=== PATIENT | female | born 1945 | race Caucasian/White ===

== ENCOUNTER 2018-12-09 12:47 | Emergency (ER) | payer MEDICARE, OTHER ==
--- NOTE | 2018-12-09 14:46 | ER Document Report ---
ED Medical Screen (RME) - General Chief Complaint: Leg Swelling Stated Complaint: CHEST PAIN Time Seen by Provider: 12/09/18 14:16 Primary Care Provider: MEÑO PIPER MD [Primary Care Provider] - Follow up as needed Notes: Patient is a 73-year-old female that presents to the emergency department for chief complaint of leg swelling and shortness of breath. 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 Denies any chest pain ROS: Other than noted above, the 12 point review of systems was reviewed with the patient and were negative, all pertinent findings are included in the HPI. PHYSICAL EXAMINATION: Vital signs reviewed. GENERAL: Elderly female, no acute distress, HEAD: Atraumatic, normocephalic. EYES: Pupils equal round extraocular movements intact, conjunctiva are normal. ENT: Nares patent NECK: Normal range of motion CV: Heart regular rate and rhythm LUNGS: No respiratory distress Musculoskeletal: Normal range of motion, bilateral lower extremity edema NEUROLOGICAL: Normal speech PSYCH: Normal mood, normal affect. MDM: Patient seen and examined for rapid initial assessment. Vital signs reviewed. A comprehensive ED assessment and evaluation of the patient, analysis of test results and completion of the medical decision making process will be conducted by additional ED providers. *Note is created using voice recognition software and may contain spelling, syntax or grammatical errors. TRAVEL OUTSIDE OF THE [place] IN LAST 30 DAYS: No - Related Data Allergies/Adverse Reactions: No Known Allergies Allergy (Unverified 12/09/18 13:02) Past Medical History - Past Medical History Cardiac Medical History: Reports: Hx Hypercholesterolemia, Hx Hypertension Endocrine Medical History: Reports: Hx Diabetes Mellitus Type 2 Renal/ Medical History: Reports: Hx End Stage Renal Disease. Denies: Hx Peritoneal Dialysis Physical Exam - Vital signs Vitals: Temp Pulse Resp BP Pulse Ox 97.8 F 74 18 150/85 H 97 12/09/18 13:12/09/18 13:12/09/18 13:12/09/18 13:12/09/18 13:09 Course - Vital Signs Vital signs: Temp Pulse Resp BP Pulse Ox 97.8 F 74 18 150/85 H 97 12/09/18 13:12/09/18 13:09 12/09/18 13:09 12/09/18 13:09 12/09/18 13:09 Doctor's Discharge - Discharge Referrals: MEÑO PIPER MD [Primary Care Provider] - Follow up as needed
--- NOTE | 2018-12-09 14:48 | RADIOLOGY REPORT (SQ) ---
EXAM DESCRIPTION: CHEST SINGLE VIEW COMPLETED DATE/TIME: 12/09/2018 2:41 pm REASON FOR STUDY: dyspnea COMPARISON: None. EXAM PARAMETERS: NUMBER OF VIEWS: One view. TECHNIQUE: Single frontal radiographic view of the chest acquired. RADIATION DOSE: NA LIMITATIONS: None. FINDINGS: LUNGS AND PLEURA: No opacities, masses or pneumothorax. Small pleural effusions. MEDIASTINUM AND HILAR STRUCTURES: No masses. Contour normal. HEART AND VASCULAR STRUCTURES: Mild cardiac enlargement. Normal vasculature. BONES: No acute findings. HARDWARE: None in the chest. OTHER: No other significant finding. IMPRESSION: MILD CARDIAC ENLARGEMENT. SMALL PLEURAL EFFUSIONS. TECHNICAL DOCUMENTATION: JOB ID: [id number] [employer] ([employer])- All Rights Reserved Reading location - IP/workstation name: [email or web address]
[2018-12-09 16:17] LABS: ABSOLUTE LYMPHOCYTES (AUTO) 1.3 10^3/uL (0.5-4.7); ABSOLUTE MONOCYTES (AUTO) 0.3 10^3/uL (0.1-1.4); ABSOLUTE NEUT (AUTO) 4.2 10^3/uL (1.7-8.2); BASOPHILS % (AUTO) 0.3 % (0-2); EOSINOPHILS % (AUTO) 0.6 % (0-6); HEMATOCRIT 34.4 % (36.0-47.0); HEMOGLOBIN 11.4 g/dL (12.0-15.5); LYMPHOCYTES % (AUTO) 22.3 % (13-45); MEAN CORPUSCULAR HEMOGLOBIN 30.4 pg (27.0-33.4); MEAN CORPUSCULAR HGB CONC 33.2 g/dL (32.0-36.0); MEAN CORPUSCULAR VOLUME 91 fl (80-97); MONOCYTES % (AUTO) 5.7 % (3-13); PLATELET COUNT 205 10^3/uL (150-450); RED BLOOD COUNT 3.76 10^6/uL (3.72-5.28); RED CELL DISTRIBUTION WIDTH 14.5 % (11.5-14.0); SEGMENTED NEUTROPHILS % (AUTO) 71.1 % (42-78); TOTAL CELLS COUNTED % (AUTO) 100 %; WHITE BLOOD COUNT 5.9 10^3/uL (4.0-10.5)
--- NOTE | 2018-12-09 16:29 | ER Document Report ---
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 She is been having the swelling for a few weeks and now is developed shortness of breath, especially dyspnea on exertion. She has renal disease, but has never been told she needs to be on dialysis. Only complaining of shortness of breath and difficulty breathing, primarily with exertion. Not having any chest pains. TRAVEL OUTSIDE OF THE [place] IN LAST 30 DAYS: No - Related Data Allergies/Adverse Reactions: No Known Allergies Allergy (Unverified 12/09/18 13:02) Past Medical History - Social History Smoking Status: Unknown if Ever Smoked Family History: Reviewed & Not Pertinent Patient has suicidal ideation: No Patient has homicidal ideation: No - Past Medical History Cardiac Medical History: Reports: Hx Hypercholesterolemia, Hx Hypertension Endocrine Medical History: Reports: Hx Diabetes Mellitus Type 1, Hx Diabetes Mellitus Type 2 Renal/ Medical History: Reports: Hx Renal Insufficiency Review of Systems - Review of Systems Notes: REVIEW OF SYSTEMS: CONSTITUTIONAL : Denies fever. EENT: Denies eye, ear, nose or mouth or throat pain or other symptoms. CARDIOVASCULAR: Denies chest pain. Recent onset swelling of both lower extremities, mostly pretibial region. Chronic swelling of the inner right thigh since she delivered a child decades ago. Some swelling in the left inner thigh. No erythema like an infection. RESPIRATORY: Denies cough, chest congestion, but does complain of shortness of breath, especially with exertion. GASTROINTESTINAL: Denies abdominal pain or nausea, vomiting, or diarrhea. GENITOURINARY: Denies difficulty or painful urinating, urinary frequency, blood in urine. MUSCULOSKELETAL: Denies back or neck pain. Denies joint pain or swelling. SKIN: Denies rash or skin lesions. NEUROLOGICAL: Denies LOC or altered mental status. Denies headache. Denies sensory loss or motor deficits. ALL OTHER SYSTEMS REVIEWED AND NEGATIVE. Physical Exam - Vital signs Vitals: Temp Pulse Resp BP Pulse Ox 97.8 F 74 18 150/85 H 97 12/09/18 13:09 12/09/18 13:09 12/09/18 13:09 12/09/18 13:09 12/09/18 13:09 Interpretation: Normal Notes: PHYSICAL EXAMINATION: GENERAL: Well-appearing, in no acute distress. HEAD: Atraumatic, normocephalic. EYES: Pupils equal round and reactive to light, extraocular movements intact. ENT: oropharynx clear without exudates. Moist mucous membranes. NECK: Normal range of motion, supple. LUNGS: Breath sounds clear and equal bilaterally. No wheezes. I do not really hear any rales or rhonchi either. Good air exchange. HEART: Regular rate and rhythm without murmurs. ABDOMEN: Soft, nontender. No guarding or rebound. No masses. BACK: No tenderness throughout entire back. EXTREMITIES: Normal range of motion without pain. Bilateral pitting edema of about +2, in the pretibial area. Negative Homans bilaterally. Right inner thigh looks like the patient has some degree of lymphedema which is soft and not tender. No erythema. Nothing that looks like an infection. Patient has had this for decades. NEUROLOGICAL: Normal speech, normal gait. Normal sensory, motor, and reflex exams. Awake, alert, and oriented x3. Cranial nerves normal. PSYCH: Normal mood, normal affect. SKIN: Warm, dry, no rashes. Course - Re-evaluation Re-evalutation: 12/09/18 19:10 Workup results discussed with patient and family. She does have some mild renal insufficiency as well as some mild congestive heart failure, but no acute processes going on at this time. She is been on various medications and has a bag for her discontinued medicines and another bag for her ongoing medicines. She is previously been on Lasix 20 mg a day, but that has been stopped. She is currently taking a half of a hydrochlorothiazide 25 mg pill daily. She is on medications for her blood pressure, as well. I advised the patient to stop the hydrochlorothiazide and start taking 2 of her Lasix 20 mg pills so that she is taking 40 mg daily. I advised her to follow-up with her primary care provider in the next week for recheck of progress and for further follow-up of her renal functions. I tried to call Dr. Ibarra, but he is not electronic warfare specialist this evening so was not able to talk to him about the treatment plan. I will try to contact him tomorrow to see if what I have recommended doing is satisfactory. - Vital Signs Vital signs: Temp Pulse Resp BP Pulse Ox 98.7 F 74 15 187/96 H 97 12/09/18 18:24 12/09/18 13:09 12/09/18 18:01 12/09/18 18:30 12/09/18 18:01 - Laboratory Result Diagrams: 12/09/18 15:45 12/09/18 15:45 Laboratory results interpreted by me: 12/09/18 12/09/18 12/09/18 15:45 15:45 15:45 Hgb 11.4 L Hct 34.4 L RDW 14.5 H Chloride 108 H BUN 51 H Creatinine 2.31 H Est GFR ( Amer) 25 L Est GFR (Non-Af Amer) 21 L Glucose 129 H NT-Pro-B Natriuret Pep 7740 H Total Protein 6.0 L Albumin 3.4 L Discharge - Discharge Clinical Impression: Chronic congestive heart failure, Renal insufficiency, mild, Hypertension, IDDM (insulin dependent diabetes mellitus) Condition: Stable Disposition: HOME, SELF-CARE Additional Instructions: Kidney Function Abnormality Your evaluation has shown an abnormality of your kidney function. An abnormal kidney function test can be caused by dehydration, acute kidney damage, blood vessel disease (such as with diabetes or chronic high blood pressure), or just old age. If the abnormality is caused by an acute disease, it may reverse completely. Have a repeat test. If it's normal, don't worry about your kidneys. If you have a chronic kidney problem, you must be careful with medicines and medical tests. Be sure any doctor who prescribes medicine or orders tests knows that your kidney tests have been abnormal. Some medicines must have the dose reduced, other medicines must be avoided. If the doctor has recommended further workup, be sure to follow up as instructed. Call us if you have new flank pain, vomiting, confusion, or if y ou're unable to urinate. Congestive Heart Failure You have been diagnosed as having congestive heart failure (CHF). CHF occurs when the heart is unable to pump blood efficiently, leading to fluid buildup in the veins and lungs. Typical symptoms are swelling of the legs, shortness of breath on minor exertion, and fatigue. CHF is treated with salt restriction, medicine to eliminate excess water and salt from the body, and medication to help the heart contract more efficiently. Eliminate added salt and salty foods in your diet. Decrease your activity until excess fluid has been eliminated. It will also be helpful to raise the head of your bed so you can sleep more easily. Keep a daily record of your weight. This will help your physician monitor your progress. Once extra water has been eliminated, light aerobic exercise daily -- such as walking -- will be helpful (unless your physician has told you to restrict activity for other reasons). Be sure to follow up with the physician as instructed. Contact the doctor at once if you worsen in any way. Diuretic We have prescribed a diuretic medication. Diuretics are often called "water pills." The medicine flushes excess salt and water from the body. Diuretics are used for fluid retention (such as heart failure, cirrhosis, or lung disease) and for blood pressure control. Often diuretics are combined with other medicines in the same pill. Most patients prefer to take the medicine in the morning. Diuretics make extra urine, which can be a problem if you take the pill at night. Diuretics make you lose potassium. Sometimes a good diet with plenty of fruit is enough to replace it. Sometimes a potassium supplement is necessary. Or, the diuretic may be combined with medicines that prevent potassium loss. We usually recommend a blood potassium test in a few weeks. Contact your doctor if you develop extreme fatigue, muscle weakness, lethargy, confusion, or palpitations. Stop taking the hydrochlorothiazide, 1/2 pill daily. Resume taking the Lasix (furosemide) 20 mg pills, but take 2 of them daily. Lasix Furosemide (Lasix) has been prescribed to eliminate excess fluid from your system. Lasix forces the kidney to put out extra salt and water in the urine. It is used for fluid retention due to heart or lung disease -- improving the symptoms of swelling, shortness of breath, and fatigue. Lasix may cause potassium loss (hypokalemia), so a potassium supplement is usually prescribed. If no potassium has been recommended for you, be sure to have your serum potassium checked after a short time on the medication. Contact your doctor if you have severe weakness or palpitations. Weigh yourself daily. Changes in your weight show how much salt and water your body is eliminating (or retaining). Generally, you should not lose more than about two pounds daily. Once you have lost the desired amount of extra fluid, continued weighing is recommended to monitor your condition. Follow-up with your primary care provider or Dr. Ibarra in a week FOLLOW-UP CARE: If you have been referred to a physician for follow-up care, call the physician s office for an appointment as you were instructed or within the next two days. If you experience worsening or a significant change in your symptoms, notify the physician immediately or return to the Emergency Department at any time for re-evaluation. Referrals: CHANDAN VANESSA PA-C [Primary Care Provider] - Follow up in 1 week
[2018-12-09 16:30] LABS: ALANINE AMINOTRANSFERASE 33 U/L (9-52); ALBUMIN 3.4 g/dL (3.5-5.0); ALKALINE PHOSPHATASE 76 U/L (38-126); ANION GAP 7 (5-19); ASPARTATE AMINO TRANSFERASE 21 U/L (14-36); BILIRUBIN,DIRECT 0.2 mg/dL (0.0-0.4); BILIRUBIN,TOTAL 0.5 mg/dL (0.2-1.3); BLOOD UREA NITROGEN 51 mg/dL (7-20); CALCIUM 9.3 mg/dL (8.4-10.2); CARBON DIOXIDE 27 mmol/L (22-30); CHLORIDE 108 mmol/L (98-107); GLUCOSE 129 mg/dL (75-110); SODIUM 142.1 mmol/L (137-145)
[2018-12-09 16:40] LABS: TROPONIN I 0.012 ng/mL
--- NOTE | 2018-12-09 17:27 | XCELERA REPORT ---
[address] [address] Lower Extremity Venous Evaluation Procedure: Color flow and duplex imaging bilaterally of the veins of the lower extremities as well as the Common Femoral veins. Right Sided Venous Evaluation Lucent,spaces in subcutaneous tissues of the leg, suggesting edema, noted. Normal vessel filling wall to wall, compression and augmentation as well as Colour flow down to the infrageniculate veins. Left Sided Venous Evaluation Lucent,spaces in subcutaneous tissues of the leg, suggesting edema, noted. Normal vessel filling wall to wall, compression and augmentation as well as Colour flow down to the infrageniculate veins. Interpretation Summary No duplex evidence of DVT or obstruction in the bilateral lower extremities. Subcutaneous edema noted, on lyons scale, bilaterally. Name: JAD MCCOY Age: 73 yrs Gender: Female : 1945 Patient Status: Emergency Patient Location: ER Study Date: 12/09/2018 04:16 PM Reason For Study: Diffuse swelling both lower legs Ordering Physician: STEPHANIE BUTLER Performed By: Suad Tijerina : STEPHANIE BUTLER > Everardo Artis
[2018-12-09 18:30] VITALS: BP 187/96
--- NOTE | 2018-12-09 21:25 | EKG REPORT ---
SEVERITY:- ABNORMAL ECG - SINUS RHYTHM NONSPECIFIC T ABNORMALITIES, LATERAL LEADS : Confirmed by: Sabine Holloway MD 09-Dec-2018 21:24:18
== END 2018-12-09 18:31 | disposition home or self-care (01) ==
LOC: ER 12:47
DX: I11.0 Hypertensive heart disease with heart failure (principal); I50.9 Heart failure, unspecified; N28.9 Disorder of kidney and ureter, unspecified; E11.9 Type 2 diabetes mellitus without complications; Z79.4 Long term (current) use of insulin; M79.89 Other specified soft tissue disorders; R07.9 Chest pain, unspecified; R06.02 Shortness of breath; Z79.899 Other long term (current) drug therapy
CPT/HCPCS: 36415; 71045; 80053; 83880; 84484; 85025; 93005; 93010; 93970; 99284

== ENCOUNTER 2019-04-22 09:32 | Day surgery (SDC) | payer MEDICARE, OTHER ==
[~2019-04-22 09:32] MED LIST: BACITRACIN INJ 50,000 UNIT VIAL ONE; BUPIVACAINE HCL 0.25 % INJ/PF (2.5 MG/1 ML) 30 ML VIAL ONE; CEFAZOLIN 1 GM/D5W RTU 1 GM/50 ML RTUPB IV PRN; HEPARIN SOD (PORCINE) 1,000 UNIT/ML 10 ML VIAL ONE; LIDOCAINE 0.5% INJ-PF (5 MG/ML) 50 ML SDV ONE; LIDOCAINE 1% INJ-PF (10 MG/ML) 30 ML SDV ONE
--- NOTE | 2019-04-22 10:15 | PDOC H&P ---
General Chief Complaint: This patient with end-stage renal disease on hemodialysis has been evaluated for arteriovenous fistula. Vein mapping in my office suggests to have a left upper extremity fistula, likely brachiocephalic would be the most likely to produce a usable fistula long-term at the least possible risk. The above discussed with the patient. She wishes to proceed. - Diagnosis (1) End-stage renal disease on hemodialysis Is this a Current Diagnosis?: Yes (2) Diabetes mellitus type 2 in nonobese Is this a Current Diagnosis?: Yes (3) Hypercholesterolemia Is this a Current Diagnosis?: Yes - Current Medications/Allergies Allergies/Adverse Reactions: No Known Allergies Allergy (Unverified 12/09/18 13:02) Past Medical History Cardiac Medical History: Reports: Hyperlipidema, Hypertension Endocrine Medical History: Reports: Diabetes Mellitus Type 1, Diabetes Mellitus Type 2 Renal/ Medical History: Reports: End Stage Renal Disease Family History Family History: Reviewed & Not Pertinent Parental Family History Reviewed: No Children Family History Reviewed: No Sibling(s) Family History Reviewed.: No Social History Smoking Status: Smoker,Current Status Unk Physical Exam Additional comments: Constitutional: Well-developed well-nourished lady, frail body habitus. No apparent acute distress. Eyes: Mucous membranes pink and moist, pupils equal and reactive to light. Conjunctiva normal. ENT: Hearing grossly normal. External pinna normal to inspection. . Tongue normal to inspection. Cardiac: Heart sounds 1 and 2 normal, no murmurs. Chest: Right-sided PermCath in place. Respiratory: breath sounds are present bilaterally, normal. Normal respiratory effort. Psychiatric: Judgment, memory, insight seem normal. Mood is pleasant and appropriate. Extremities: Upper extremities show normal range of movement. Pulses present n oted to the radial arteries. Capillary refill normal. No cyanosis noted. No muscle wasting noted. Impression/Plan Plan: In this patient with end-stage renal disease on hemodialysis left arm AV fistula is the apparent best first choice. The risks including infection, bleeding, heart, lung complications, steal syndrome, cutting down blood supply to the extremity were discussed with the patient. Her questions and concerns were addressed to apparent satisfaction and she wishes to proceed.
[2019-04-22] MEDS ORDERED: NITROGLYCERIN/D5W 0 MG/0 ML RTUINJ IV ONE (10:44)
[2019-04-22] MEDS ORDERED: CEFAZOLIN 1 GM/D5W RTU 1 GM/50 ML RTUPB IV ONE (11:03)
[2019-04-22 11:13] LABS: HEMATOCRIT 29.8 % (36.0-47.0); HEMOGLOBIN 9.8 g/dL (12.0-15.5); MEAN CORPUSCULAR HEMOGLOBIN 28.5 pg (27.0-33.4); MEAN CORPUSCULAR HGB CONC 32.9 g/dL (32.0-36.0); MEAN CORPUSCULAR VOLUME 87 fl (80-97); PLATELET COUNT 291 10^3/uL (150-450); RED BLOOD COUNT 3.44 10^6/uL (3.72-5.28); RED CELL DISTRIBUTION WIDTH 15.4 % (11.5-14.0); WHITE BLOOD COUNT 7.1 10^3/uL (4.0-10.5)
[2019-04-22] MEDS ORDERED: LIDOCAINE 2% INJ (20 MG/ML) 20 ML MDV ONE (11:16)
[2019-04-22] MEDS ORDERED: LIDOCAINE 2%/EPINEPHRINE INJ 20 ML VIAL ONE (11:16)
[2019-04-22] MEDS ORDERED: ROPIVACAINE HCL 0.5% INJ/PF (5 MG/1 ML) 30 ML SDV ONE (11:17)
[2019-04-22] MEDS: FAMOTIDINE INJ/PF 20 MG/2 ML SDV IV ONE ×2 (11:20→11:45)
[2019-04-22] MEDS: CLONIDINE HCL 0.1 MG TABLET PO ONE ×2 (11:20→11:40)
[2019-04-22] MEDS: METOCLOPRAMIDE HCL INJ/PF 10 MG/2 ML SDV ONE ×2 (11:20→11:45)
[2019-04-22 11:21] LABS: ANION GAP 12 (5-19); BLOOD UREA NITROGEN 23 mg/dL (7-20); CALCIUM 10.2 mg/dL (8.4-10.2); CARBON DIOXIDE 29 mmol/L (22-30); CHLORIDE 101 mmol/L (98-107); POTASSIUM 3.5 mmol/L (3.6-5.0)
[2019-04-22 11:25] LABS: GLUCOSE 63 mg/dL (75-110)
[2019-04-22] MEDS ORDERED: DEXTROSE 50%-WATER 25 GM/50 ML DISP.SYRIN IV ONE (11:34)
[2019-04-22] MEDS: DEXTROSE 50%-WATER 25 GM/50 ML DISP.SYRIN IV ONE ×2 (11:40→13:21)
--- NOTE | 2019-04-22 11:52 | RADIOLOGY REPORT (SQ) ---
EXAM DESCRIPTION: CHEST SINGLE VIEW COMPLETED DATE/TIME: 04/22/2019 10:37 am REASON FOR STUDY: PREOP COMPARISON: 12/09/2018 NUMBER OF VIEWS: One view. TECHNIQUE: Single frontal radiographic view of the chest acquired. LIMITATIONS: None. FINDINGS: LUNGS AND PLEURA: No opacities, masses or pneumothorax. No pleural effusion. MEDIASTINUM AND HILAR STRUCTURES: No masses. Contour normal. HEART AND VASCULAR STRUCTURES: Heart size is stable. No failure. BONES: No acute findings. HARDWARE: Dialysis catheter is in place. OTHER: No other significant finding. IMPRESSION: NO SIGNIFICANT RADIOGRAPHIC FINDING IN THE CHEST. TECHNICAL DOCUMENTATION: JOB ID: [id number] [employer]- All Rights Reserved Reading location - IP/workstation name: [email or web address]
[2019-04-22] MEDS ORDERED: DIPHENHYDRAMINE HCL 50 MG/ML VIAL IV PRN (11:58)
[2019-04-22] MEDS ORDERED: OXYCODONE-ACETAMINOPHEN 5-325 MG TABLET PO PRN ×2 (11:58)
[2019-04-22] MEDS ORDERED: FENTANYL CITRATE INJ/PF 100 MCG/2 ML AMPUL IV PRN ×3 (11:58)
[2019-04-22] MEDS ORDERED: PROMETHAZINE HCL INJ 25 MG/1 ML VIAL IV PRN (11:58)
--- NOTE | 2019-04-22 12:44 | EKG REPORT ---
SEVERITY:- ABNORMAL ECG - SINUS RHYTHM CONSIDER LEFT VENTRICULAR HYPERTROPHY NONSPECIFIC INFERIOR ST-T CHANGES : Confirmed by: Agustín Hancock MD 22-Apr-2019 12:42:53
--- NOTE | 2019-04-22 13:39 | Discharge Summary ---
Discharge Summary (SDC) - Discharge Final Diagnosis: #1 end-stage renal disease on hemodialysis. 2. Diabetes mellitus type 2. 3. Hypertension. Date of Surgery: 04/22/19 Discharge Date: 04/22/19 Condition: Fair Treatment or Instructions: Discharge home [after recovery per ASU criteria]. Diet , [renal],as tolerated, when fully awake advance as tolerated. Activities within moderation encouraged. Follow up in my office by appointment in about [1 week]. Call for appointment. Leave wounds [covered], [keep clean and dry, until office visit in 1 week]. Hold of on school/work [until evaluation in office]. Meds per med rec. Percocet. May shower [in 48 hrs], [try to keep operated area as dry as possible]. Prescriptions: Oxycodone HCl/Acetaminophen [Percocet 5-325 mg Tablet] 1 tab PO ASDIR PRN #15 tab PRN Reason: Referrals: CHANDAN VANESSA PA-C [Primary Care Provider] - Discharge Diet: Other (Comments) - Renal, diabetic. Respiratory Treatments at Home: Deep Breathing/Coughing Discharge Activity: Activity As Tolerated Report the Following to Your Physician Immediately: Shortness of Breath, Unusual Bleeding
--- NOTE | 2019-04-22 13:44 | Operative Report ---
Operative Report DATE OF SURGERY: 04/22/19 PREOPERATIVE DIAGNOSIS: #1 end-stage renal disease on hemodialysis. 2. Diabet es mellitus type 2. 3. Hypertension. POSTOPERATIVE DIAGNOSIS: #1 end-stage renal disease on hemodialysis. 2. Diabetes mellitus type 2. 3. Hypertension. OPERATION: Insertion of left arm brachiocephalic arteriovenous fistula. SURGEON: LEELA CLAIRE SUPERVISING PRODUCER: None. ANESTHESIA: LMAC TISSUE REMOVED OR ALTERED: Not applicable. COMPLICATIONS: None. ESTIMATED BLOOD LOSS: 5 mL. INTRAOPERATIVE FINDINGS: Satisfactory brachial artery with only minimal disease wall thickening. Adjacent cephalic and basilic veins connected. The veins are relatively thin-walled and maturation is anticipated to take a while. The basilic artery was disconnected and continuity restored with a longitudinal suture. Voodoo of basilic vein flow for future use is anticipated. The cephalic vein was connected to the brachial artery through a connecting branch. There was smooth flow through it. An appropriate Doppler signal in all vessels at the end of the procedure. Auscultation at the end of the procedure indicated a bruit in the cephalic vein. PROCEDURE: Operative Report PROCEDURE: After reviewing the procedure with the patient, [she] was taken to the operating room. The patient was sedated and the [left upper extremity] prepared with chlorhexidine and draped out with sterile linen. After the "" universal timeout", in which it was verified that the patient [received IV antibiotics] the procedure commenced. The sterilely sheathed ultrasound probe was used to evaluate the left venous and arterial systems, pertinent to the previously done vein mapping. Local anesthesia was infiltrated and a transverse incision made over the upper forearm, near the antecubital fossa. Dissection proceeded through the subcutaneous tissues down to the cephalic vein. This was dissected out proximally and distally for about 2 cm. Likewise major branches. The Bicipital aponeurosis was now incised longitudinally and the brachial artery dissected out for a distance of about 1.5 cm. Rubber loops were placed on either end. The patient was given 2500 units of heparin intravenously. The medial branch of the cephalic vein was transected and irrigated with heparinized solution. The disconnected basilic vein was reconstituted with a continuous side suture of 6-0 Prolene. The distal branches were clipped the artery was controlled proximally and distally with rubber loops. An arteriotomy approximately [1 cm] in length was made, the artery was irrigated proximally and distally with heparinized solution. The transected vein was now spatulated [using the branch patch technique], it was then anastomosed end to end to side into the brachial artery. This was done using a continuous suture of 6-0 Prolene. Controls of the fistula were now released and it was analyzed using a Doppler probe. Hemostasis was secured once optimal function was assured, the wound was irrigated with antibiotic containing solution and closed. Closure was done using interrupted 3-0 PDS for the subcutaneous tissues. The skin was closed using a continuous subcutaneous suture of 4-0 Monocryl which was reinforced with Steri-Strips over benzoin. I then left the operative field and returned with a stethoscope covered with a sterile Tegaderm dressing. This allowed external auscultation of the fistula. Auscultation was [satisfactory]. The procedure was concluded by applying a Kerlix dressing over the surgical site. DICTATING PHYSICIAN: LEELA HIGGINS M.D.
[2019-04-22] MEDS ORDERED: OXYCODONE-ACETAMINOPHEN 5-325 MG TABLET ONE (14:15)
[2019-04-22] MEDS ORDERED: LIDOCAINE 2% INJ-PF (20 MG/ML) 2 ML AMPUL ONE (14:49)
[2019-04-22 18:05] VITALS: BP 170/84
== END 2019-04-22 16:40 | disposition home or self-care (01) ==
LOC: OROUT 09:32
PROVIDERS: ATTEND Surgery
DX: E10.22 Type 1 diabetes mellitus with diabetic chronic kidney disease (principal); I12.0 Hypertensive chronic kidney disease with stage 5 chronic kidney disease or end stage renal disease; N18.6 End stage renal disease; Z99.2 Dependence on renal dialysis; E78.00 Pure hypercholesterolemia, unspecified; E78.5 Hyperlipidemia, unspecified
CPT/HCPCS: 36821; 36415; 82962; 85027; 80048; 71045; 93005; 93010; J2795; J3490 ×7; J0690; A9270 ×2; J1644; J2765; S0028; 1844

== ENCOUNTER → 2020-03-03 | Outpatient (CLI) | payer MEDICARE, OTHER ==
--- NOTE | 2020-03-03 14:33 | RADIOLOGY REPORT (SQ) ---
EXAM DESCRIPTION: CT ABDOMEN COMBO IMAGES COMPLETED DATE/TIME: 03/03/2020 10:13 am REASON FOR STUDY: R31.9 HEMATURIA, UNSPECIFIED R31.9 HEMATURIA, UNSPECIFIED COMPARISON: None TECHNIQUE: CT scan of the abdomen performed with and without intravenous contrast, and without oral contrast. Contrasted imaging performed using helical scanning technique with dynamic intravenous cont rast injection. Images reviewed with lung, soft tissue, and bone windows. Reconstructed coronal and s agittal MPR images reviewed. Delayed images for evaluation of the urinary system also acquired and ev aluated. All images stored on PACS. All CT scanners at this facility use dose modulation, iterative reconstruction, and/or weight based d osing when appropriate to reduce radiation dose to as low as reasonably achievable (ALARA). [facility]: Dose Right [facility]: CareDose [facility]: Dose Right [facility]: Teradose 4D [facility]: ApoVax CONTRAST TYPE AND DOSE: 75 cc Omnipaque 350- low osmolar. RENAL FUNCTION: Creatinine 6.2. Dialysis patient. RADIATION DOSE: CT Rad equipment meets quality standard of care and radiation dose reduction techniq ues were employed. CTDIvol: 11.3 - 11.6 mGy. DLP: 1153 mGy-cm.. LIMITATIONS: None. FINDINGS: NONCONTRASTED IMAGING: No significant renal or bladder calcifications. No other significan t organ calcifications. POSTCONTRASTED IMAGING: LOWER CHEST: No significant findings. No nodules or infiltrates. LIVER: Normal size. No masses. No dilated ducts. SPLEEN: Normal size. No focal lesions. PANCREAS: 14 mm cystic lesion just to the right of the midline along the inferior margin of the pancr eas. GALLBLADDER: No identified stones by CT criteria. No inflammatory changes to suggest cholecystitis. ADRENAL GLANDS: No significant masses or asymmetry. RIGHT KIDNEY AND URETER: No solid masses. No significant calcifications. No hydronephrosis or hyd roureter. LEFT KIDNEY AND URETER: No solid masses. No significant calcifications. No hydronephrosis or hydr oureter. AORTA AND VESSELS: No aneurysm. No dissection. Renal arteries, SMA, celiac without stenosis. RETROPERITONEUM: No retroperitoneal adenopathy, hemorrhage or masses. BOWEL AND PERITONEAL CAVITY: Included bowel is normal. APPENDIX: Not included. ABDOMINAL WALL: Supraumbilical ventral hernia containing fat. BONES: Lower lumbar degenerative changes. OTHER: No other significant finding. IMPRESSION: 1. No urinary calculi are seen. 2. 14 mm cystic lesion just to the right of the midline along the inferior margin of the pancreas. Could represent a small pseudocyst. Could represent a cystic pancreatic lesion. [facility]. 3. Supraumbilical ventral hernia contains fat. 4. Lumbar degenerative changes. TECHNICAL DOCUMENTATION: JOB ID: [id number] Quality ID # [id number]: Final reports with documentation of one or more dose reduction techniques (e.g., Au tomated exposure control, adjustment of the mA and/or kV according to patient size, use of iterative reconstruction technique) 2010 [employer]- All Rights Reserved Reading location - IP/workstation name: [email or web address]
== END ==
LOC: RAD 09:31
PROVIDERS: ATTEND Urology
DX: R31.9 Hematuria, unspecified (principal); D49.519 Neoplasm of unspecified behavior of unspecified kidney
CPT/HCPCS: 74170; 82565

== ENCOUNTER → 2020-03-31 | Outpatient (CLI) | payer MEDICARE, OTHER ==
--- NOTE | 2020-04-01 10:37 | RADIOLOGY REPORT (SQ) ---
EXAM DESCRIPTION: MRI ABDOMEN COMBO IMAGES COMPLETED DATE/TIME: 03/31/2020 9:08 am REASON FOR STUDY: CYST OF PANCREAS,KIDNEY CA,HEMATURIA K86.2 CYST OF PANCREAS D49.519 NEOPLASM OF UNSPECIFIED BEHAVIOR OF UNSPECIFIED KIDN R31.9 HEMATURIA, UNSPECIFIED COMPARISON: CT 03/03/2020 TECHNIQUE: Multiplanar multisequence imaging performed without and with contrast including sagittal, axial and coronal T2, axial T1, axial gradient fat sat T1, axial, sagittal and coronal fat sat T1 po st contrast. CONTRAST TYPE AND DOSE: 10 mL Prohance. RENAL FUNCTION: On hemodialysis. LIMITATIONS: Motion. FINDINGS: LIVER: Normal size. No masses. No dilated ducts. CBD normal. SPLEEN: Normal size. No focal lesions. PANCREAS: 2.3 x 1.1 cm cystic lesion in the head just anterior to the superior mesenteric vein series 4, image 20. No enhancement. Probably communicates with the pancreatic duct. Smaller similar appe aring lesion in the uncinate series 4, image 22. Potential even smaller 3 mm lesion in the body on i mage 16. No solid component or mural nodule. No pancreatic ductal dilatation. GALLBLADDER: No masses. No stones. No gallbladder wall thickening or pericholecystic fluid. ADRENAL GLANDS: No significant masses or asymmetry. RIGHT KIDNEY AND URETER: Small cysts. No solid masses or hydronephrosis. LEFT KIDNEY AND URETER: Cysts measuring up to 3 cm. No solid mass or hydronephrosis. AORTA AND VESSELS: No aneurysm. RETROPERITONEUM: No retroperitoneal adenopathy, hemorrhage or masses. BOWEL: No visualized masses. No inflammation. No significant dilatation. ABDOMINAL WALL AND PERITONEUM: Fat containing umbilical hernia. BONES: No acute or significant findings. OTHER: No other significant finding. IMPRESSION: Cystic pancreatic lesions, probably IPMNs. COMMENT: Consider endoscopic ultrasound. TECHNICAL DOCUMENTATION: JOB ID: [id number] 2010 [employer]- All Rights Reserved Reading location - IP/workstation name: [email or web address]
== END ==
LOC: RAD 07:30
PROVIDERS: ATTEND Urology
DX: K86.2 Cyst of pancreas (principal); D49.519 Neoplasm of unspecified behavior of unspecified kidney; R31.9 Hematuria, unspecified
CPT/HCPCS: 74183; A9576